=== PATIENT | male | born 1975 | race African-American/Black ===

== ENCOUNTER → 2018-07-17 | Outpatient (CLI) | payer OTHER ==
--- NOTE | 2018-07-17 15:42 | XR ---
EXAMINATION TYPE: XR cervical spine limited DATE OF EXAM: 07/17/2018 COMPARISON: None HISTORY: Slip and fall pain TECHNIQUE: Three-view cervical spine FINDINGS: There is straightening of the cervical spine in the sagittal plane which can be related to patient positioning or muscle spasm. Some mild disc space narrowing is present C5-C6. Remaining disc heights are preserved. Vertebral body heights are preserved. Prevertebral space and posterior spinal lamellar line are intact. The odontoid is limited due to overlying incisors. Submental vertex view ap pears normal. IMPRESSION: 1. No acute abnormality cervical spine. 2. Straightening which could be related to patient positioning or muscle spasm. 3. Degenerative disc changes C5-C6.
--- NOTE | 2018-07-17 15:43 | XR ---
EXAMINATION TYPE: XR shoulder complete RT DATE OF EXAM: 07/17/2018 COMPARISON: NONE HISTORY: Pain TECHNIQUE: Shoulder examined in 3 view FINDINGS: The humeral head articulates with the glenoid. The acromio-clavicular junction is normal. No acute fractures or dislocations are evident. A follow up study can be performed 7-10 days from acute trauma for continued pain. IMPRESSION: 1. Normal right Shoulder
--- NOTE | 2018-07-17 15:44 | XR ---
EXAMINATION TYPE: XR wrist complete LT DATE OF EXAM: 07/17/2018 COMPARISON: None HISTORY: Fall, pain TECHNIQUE: 4 view left wrist FINDINGS: Soft tissues are normal. Joint spaces are preserved. No acute fractures are evident. If there is pain at the anatomic snuff box, nuclear medicine bone scan be recommended for additional evaluation. Follow-up exams can be performed 7-10 days from acute trauma for continued pain. IMPRESSION: 1. Normal 4 view left wrist
--- NOTE | 2018-07-17 15:46 | XR ---
EXAMINATION TYPE: XR lumbar spine 2 or 3V DATE OF EXAM: 07/17/2018 COMPARISON: None HISTORY: Fall, pain TECHNIQUE: Three-view lumbar spine FINDINGS: Vertebral body heights are preserved. There may be some disc space narrowing L5-S1. Remaini ng disc heights are preserved. Mild spondylosis is present. IMPRESSION: 1. Mild degenerative disc change L5-S1. 2. No acute radiographic abnormality.
--- NOTE | 2018-07-17 15:46 | XR ---
EXAMINATION TYPE: XR sacrum coccyx DATE OF EXAM: 07/17/2018 COMPARISON: None HISTORY: Fall, pain TECHNIQUE: Three-view sacrum and coccyx FINDINGS: No acute fractures are evident. Alignment appears normal. Sacroiliac joints are intact. IMPRESSION: 1. Normal sacrum and coccyx.
== END | disposition home or self-care (01) ==
LOC: EDBD 14:47 → RADXRMAIN 14:47
PROVIDERS: ATTEND Emergency Medicine
DX: M47.817 Spondylosis without myelopathy or radiculopathy, lumbosacral region (principal); M47.812 Spondylosis without myelopathy or radiculopathy, cervical region; S30.0XXA Contusion of lower back and pelvis, initial encounter; S63.512A Sprain of carpal joint of left wrist, initial encounter; S13.4XXA Sprain of ligaments of cervical spine, initial encounter; S43.401A Unspecified sprain of right shoulder joint, initial encounter
CPT/HCPCS: 72040; 72100; 72220